=== PATIENT | female | born 1960 | race Caucasian/White ===

== ENCOUNTER 2020-05-06 15:02 | Emergency (ER) | payer BC ==
[2020-05-06] MEDS ORDERED: Sodium Chloride 0.9% 10 ML Syringe FLUSH PRN (15:34)
--- NOTE | 2020-05-06 15:41 | EDM.PDOCBH ---
ED HPI GENERAL MEDICAL PROBLEM - General Chief Complaint: Drug or Alcohol Abuse Stated Complaint: ALCOHOL ISSUES/FALL Time Seen by Provider: 05/06/20 15:09 Source of Information: Reports: Patient, Family History Limitations: Reports: No Limitations - History of Present Illness INITIAL COMMENTS - FREE TEXT/NARRATIVE: The patient presents with her for alcohol intoxication and a fall. She fell down about 12 stairs. She does admit to drinking today. She does admit to drinking about a fifth of either vodka or rum daily. She denies hitting her head but her daughter saw it and said that she did. She had no LOC. She has no headache or neck pain. She has no fever, chills, cough, congestion, runny nose, chest pain, abdominal pain, nausea, vomiting leg or arm pain. She has a history of hypertension. Onset: Sudden Duration: Minutes: Improves with: Reports: None Worsens with: Reports: None Associated Symptoms: Reports: No Other Symptoms - Related Data Allergies Allergy/AdvReac Type Severity Reaction Status Date / Time No Known Allergies Allergy Verified 05/06/20 15:25 Home Meds: Home Meds Aspirin [Halfprin] 81 mg PO DAILY 05/06/20 [History] DULoxetine [Cymbalta] 60 mg PO DAILY 05/06/20 [History] Potassium Chloride 10 meq PO DAILY 05/06/20 [History] atorvaSTATin [Lipitor] 10 mg PO BEDTIME 05/06/20 [History] hydroCHLOROthiazide [Hydrochlorothiazide] 25 mg PO DAILY 05/06/20 [History] Past Medical History HEENT History: Reports: Impaired Vision Cardiovascular History: Reports: High Cholesterol, Hypertension Musculoskeletal History: Reports: Back Pain, Chronic, Fibromyalgia Other Musculoskeletal History: issues with herniated disc Psychiatric History: Reports: Anxiety, Depression - Infectious Disease History Infectious Disease History: Reports: Novel Coronavirus Social & Family History - Tobacco Use Tobacco Use Status *Q: Never Tobacco User - Caffeine Use Caffeine Use: Reports: Coffee - Recreational Drug Use Recreational Drug Use: No ED ROS GENERAL - Review of Systems Review Of Systems: See Below Constitutional: Reports: No Symptoms HEENT: Reports: No Symptoms Respiratory: Reports: No Symptoms Cardiovascular: Reports: No Symptoms Endocrine: Reports: No Symptoms GI/Abdominal: Reports: No Symptoms : Reports: No Symptoms Musculoskeletal: Reports: No Symptoms Skin: Reports: No Symptoms Neurological: Reports: No Symptoms ED EXAM, BEHAVIORAL HEALTH - Physical Exam Exam: See Below Exam Limited By: Intoxication General Appearance: Alert, No Apparent Distress Ears: Normal External Exam Nose: Normal Inspection Head: Atraumatic, Normocephalic Neck: Normal Inspection Respiratory/Chest: No Respiratory Distress, Lungs Clear, Normal Breath Sounds Cardiovascular: Regular Rate, Rhythm, No Edema, No Murmur GI/Abdominal: Soft, Non-Tender, No Organomegaly, No Mass Back Exam: Normal Inspection Extremities: Normal Inspection Neurological: Alert, No Motor/Sensory Deficits, Oriented x 3 COURSE, BEHAVIORAL HEALTH COMP - Course Vital Signs: Last Vital Signs Temp 96.8 F L 05/06/20 15:38 Pulse 108 H 05/06/20 15:38 Resp 20 05/06/20 15:38 BP 108/68 05/06/20 15:38 Pulse Ox 98 05/06/20 15:38 Orders, Labs, Meds: Active Orders 24 hr Category Date Time Status Cardiac Monitoring [RC] . DIRECTED Care 05/06/20 15:35 Active Peripheral IV Care [RC] . DIRECTED Care 05/06/20 15:35 Active Head wo Cont [CT] Stat Exams 05/06/20 15:35 Taken DRUG SCREEN, URINE [URCHEM] Stat Lab 05/06/20 15:34 Stop Req Sodium Chloride 0.9% [Normal Saline] 1,000 ml Med 05/06/20 15:45 Active IV .BOLUS Sodium Chloride 0.9% [Saline Flush] Med 05/06/20 15:34 Active 10 ml FLUSH ASDIRECTED PRN Peripheral IV Insertion Adult [OM.PC] Stat Oth 05/06/20 15:34 Ordered Medication Orders Sodium Chloride (Normal Saline) 1,000 mls @ 1,000 mls/hr IV .BOLUS MAXWELL Last Admin: 05/06/20 16:10 Dose: 1,000 mls/hr Documented by: VESNA Sodium Chloride (Saline Flush) 10 ml FLUSH ASDIRECTED PRN PRN Reason: Keep Vein Open Last Admin: 05/06/20 16:18 Dose: 10 ml Documented by: VESNA Laboratory Tests 05/06/20 05/06/20 Range/Units 16:16 16:16 WBC 8.47 (3.98-10.04) K/mm3 RBC 4.60 (3.98-5.22) M/mm3 Hgb 14.1 (11.2-15.7) gm/dl Hct 41.0 (34.1-44.9) % MCV 89.1 (79.4-94.8) fl MCH 30.7 (25.6-32.2) pg MCHC 34.4 (32.2-35.5) g/dl RDW Std Deviation 39.6 (36.4-46.3) fL Plt Count 449 H (182-369) K/mm3 MPV 9.4 (9.4-12.3) fl Neut % (Auto) 56.2 (34.0-71.1) % Lymph % (Auto) 27.6 (19.3-51.7) % [place] % (Auto) 12.8 H (4.7-12.5) % Eos % (Auto) 2.5 (0.7-5.8) Baso % (Auto) 0.5 (0.1-1.2) % Neut # (Auto) 4.77 (1.56-6.13) K/mm3 Lymph # (Auto) 2.34 (1.18-3.74) K/mm3 [place] # (Auto) 1.08 H (0.24-0.36) K/mm3 Eos # (Auto) 0.21 (0.04-0.36) K/mm3 Baso # (Auto) 0.04 (0.01-0.08) K/mm3 Sodium 141 (136-145) mEq/L Potassium 3.0 L (3.5-5.1) mEq/L Chloride 101 (98-107) mEq/L Carbon Dioxide 27 (21-32) mEq/L Anion Gap 16.0 H (5-15) BUN 10 (7-18) mg/dL Creatinine 0.6 (0.55-1.02) mg/dL Est Cr Clr Drug Dosing 77.88 mL/min Estimated GFR (MDRD) > 60 (>60) mL/min BUN/Creatinine Ratio 16.7 (14-18) Glucose 110 (80-115) mg/dL Calcium 9.0 (8.5-10.1) mg/dL Magnesium 2.0 (1.8-2.4) mg/dl Total Bilirubin 0.4 (0.2-1.0) mg/dL AST 24 (15-37) U/L ALT 41 (14-59) U/L Alkaline Phosphatase 64 (46-116) U/L Total Protein 7.6 (6.4-8.2) g/dl Albumin 4.0 (3.4-5.0) g/dl Globulin 3.6 gm/dL Albumin/Globulin Ratio 1.1 (1-2) Ethyl Alcohol 0.17 (0.00) gm% Medications Generic Name Dose Route Start Last Admin Trade Name Freq PRN Reason Stop Dose Admin Sodium Chloride 1,000 mls @ 1,000 mls/hr 05/06/20 15:45 05/06/20 16:10 Normal Saline IV 1,000 mls/hr .BOLUS MAXWELL Administration Sodium Chloride 10 ml 05/06/20 15:34 05/06/20 16:18 Saline Flush FLUSH 10 ml ASDIRECTED PRN Administration Keep Vein Open Re-Assessment/Re-Exam: I ordered an IV NS 1L bolus, labs, UDS and a CT of her head. The CT of her head shows atrophy and nonspecific chronic white matter change. No acute intracranial injury or fracture present. Her CBC and CMP look good. Her blood alcohol was 0.17. She has a counselor she sees for her drinking. She will follow up with him this week. Departure - Departure Time of Disposition: 17:20 Disposition: Home, Self-Care 01 Condition: Good Clinical Impression: Alcohol abuse Alcohol intoxication Qualifiers: Complication of substance-induced condition: uncomplicated Qualified Code(s): F10.920 - Alcohol use, unspecified with intoxication, uncomplicated Fall Qualifiers: Encounter type: initial encounter Qualified Code(s): W19.XXXA - Unspecified fall, initial encounter - Discharge Information *PRESCRIPTION DRUG MONITORING PROGRAM REVIEWED*: Not Applicable *COPY OF PRESCRIPTION DRUG MONITORING REPORT IN PATIENT [place]: Not Applicable Referrals: Capri Farris NP [Primary Care Provider] - 1 Week Forms: ED Department Discharge Additional Instructions: Follow up with your counselor for help stopping drinking. Continue to take your medication as prescribed. Please return if you are worse. Sepsis Event Note (ED) - Focused Exam Vital Signs: Vital Signs Temp Pulse Resp BP Pulse Ox 05/06/20 15:38 96.8 F L 108 H 20 108/68 98 - My Orders Last 24 Hours: My Active Orders 05/06/20 15:34 DRUG SCREEN, URINE [URCHEM] Stat Sodium Chloride 0.9% [Saline Flush] 10 ml FLUSH ASDIRECTED PRN Peripheral IV Insertion Adult [OM.PC] Stat 05/06/20 15:35 Cardiac Monitoring [RC] . DIRECTED Peripheral IV Care [RC] . DIRECTED Head wo Cont [CT] Stat 05/06/20 15:45 Sodium Chloride 0.9% [Normal Saline] 1,000 ml IV .BOLUS - Assessment/Plan Last 24 Hours: My Active Orders 05/06/20 15:34 DRUG SCREEN, URINE [URCHEM] Stat Sodium Chloride 0.9% [Saline Flush] 10 ml FLUSH ASDIRECTED PRN Peripheral IV Insertion Adult [OM.PC] Stat 05/06/20 15:35 Cardiac Monitoring [RC] . DIRECTED Peripheral IV Care [RC] . DIRECTED Head wo Cont [CT] Stat 05/06/20 15:45 Sodium Chloride 0.9% [Normal Saline] 1,000 ml IV .BOLUS
[2020-05-06] MEDS ORDERED: Sodium Chloride 0.9% 1,000 ML IV SCH (15:45)
--- NOTE | 2020-05-07 08:39 | CT ---
Head CT Technique: Multiple axial sections through the brain were obtained. Intravenous contrast was not utilized. Comparison: No prior intracranial imaging is available. Findings: Ventricles along with basal cisterns and sulci over the convexities are mildly prominent. Scattered areas of diminished density are noted within the periventricular white matter compatible with small vessel ischemic demyelination change. 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 No other abnormal parenchymal densities are seen. No evidence of intracranial hemorrhage. No midline shift or mass-effect is appreciated. Bone window settings were reviewed. Visualized mastoid sinuses and paranasal sinuses show nothing acute. Mild atherosclerotic calcification is seen within the carotid siphon. No acute calvarial abnormality is appreciated. Impression: 1. Mild senescent change as noted above. 2. Nothing acute is appreciated on noncontrast head CT study. Diagnostic code #2 I agree with preliminary report from [facility], finalized on 05/06/20, 5:58 PM [facility]
== END 2020-05-06 17:30 | disposition home or self-care (01) ==
LOC: JD.ED 15:02
DX: F10.120 Alcohol abuse with intoxication, uncomplicated (principal); E78.00 Pure hypercholesterolemia, unspecified; I10 Essential (primary) hypertension; Z79.82 Long term (current) use of aspirin; Z79.899 Other long term (current) drug therapy; Y90.6 Blood alcohol level of 120-199 mg/100 ml
CPT/HCPCS: 36415; 70450; 80053; 80179; 83735; 85025; 99284; J7030